=== PATIENT | female | born 1955 | race Caucasian/White ===

== ENCOUNTER 2023-09-30 10:53 | Outpatient (OUT) | payer MEDICARE, BC, SELFPAY ==
--- NOTE | 2023-09-30 | XR_ITS ---
The [address] [address] Patient Name: AMANDA SAMANIEGO MRN: [id number] date: 1955 Sex: F Assigned Patient Location: [facility] Current Patient Location: Accession/Order Number: [id number] Exam Date: 09/30/2023 11:10 Report Date: 10/01/2023 07:30 At the request of: BARTOLO TABOR Procedure: XR foot LT min 3V PROCEDURE: XR foot LT min 3V HISTORY: LEFT FOOT PAIN ; follow-up fourth and 5th metatarsal fractures COMPARISON: XR foot left 09/08/2023 FINDINGS: BONES:Minimally increased density of the fracture lines of the mildly displaced oblique fractures of the fourth and 5th metatarsals. SOFT TISSUES:No visible soft tissue swelling. EFFUSION:None visible. OTHER: Negative. XR/XR foot LT min 3V IMPRESSION: 1. Stable alignment and mild changes of early bone healing involving the fourth and 5th metatarsal fractures. Electronically authenticated by: DOMONIQUE HENDERSON Date: 10/01/2023 07:30
== END 2023-09-30 10:54 | disposition home or self-care (01) ==
LOC: RAD 10:53
PROVIDERS: Visit Provider Podiatrist Foot & Ankle Surgery
DX: S92.352D Displaced fracture of fifth metatarsal bone, left foot, subsequent encounter for fracture with routine healing (principal)
CPT/HCPCS: 73630

== ENCOUNTER 2023-11-04 10:37 | Outpatient (OUT) | payer MEDICARE, BC, SELFPAY ==
--- NOTE | 2023-11-04 | XR_ITS ---
The [address] [address] Patient Name: AMANDA SAMANIEGO MRN: [id number] date: 1955 Sex: F Assigned Patient Location: Current Patient Location: Accession/Order Number: [id number] Exam Date: 11/04/2023 10:45 Report Date: 11/04/2023 13:56 At the request of: BARTOLO TABOR Procedure: XR foot LT min 3V PROCEDURE: XR foot LT min 3V COMPARISON: 09/30/2023 HISTORY: LEFT FOOT PAIN FINDINGS: BONES:Again demonstrated are oblique displaced fractures involving the diaphysis of the fourth and fifth metatarsals. Slight increase in sclerosis with minimal bony bridging. No new fracture or dislocation. Enthesopathic spurring of the calcaneus SOFT TISSUES:Negative. No visible soft tissue swelling. EFFUSION:None visible. OTHER: Negative. XR/XR foot LT min 3V IMPRESSION: Stable diaphyseal, extra-articular fractures fourth and fifth metatarsals with minimal interval healing Electronically authenticated by: RENETTA BRAGA Date: 11/04/2023 13:56
== END 2023-11-04 10:38 | disposition home or self-care (01) ==
LOC: EC 10:37
PROVIDERS: Visit Provider Podiatrist Foot & Ankle Surgery
DX: S92.342D Displaced fracture of fourth metatarsal bone, left foot, subsequent encounter for fracture with routine healing (principal)
CPT/HCPCS: 73630

== ENCOUNTER 2023-12-08 10:49 | Outpatient (OUT) | payer MEDICARE, BC, SELFPAY ==
--- NOTE | 2023-12-08 | XR_ITS ---
[address] [address] Patient Name: AMANDA SAMANIEGO MRN: [id number] date: 1955 Sex: F Assigned Patient Location: Current Patient Location: Accession/Order Number: [id number] Exam Date: 12/08/2023 10:55 Report Date: 12/08/2023 15:33 At the request of: BARTOLO TABOR Procedure: XR foot LT min 3V PROCEDURE: XR foot LT min 3V COMPARISON: 11/04/2023 HISTORY: LEFT FOOT PAIN FINDINGS: BONES:Stable healing mildly displaced fractures diaphysis of the fourth and fifth metatarsals. Interval increase in bone healing with incomplete bony bridging. No new fracture or dislocation. Mild enthesopathic spurring of the calcaneus at the Achilles and plantar insertions SOFT TISSUES:Negative. No visible soft tissue swelling. EFFUSION:None visible. OTHER: Negative. XR/XR foot LT min 3V IMPRESSION: Stable healing fractures fourth and fifth metatarsals Electronically authenticated by: RENETTA BRAGA Date: 12/08/2023 15:33
== END 2023-12-08 10:50 | disposition home or self-care (01) ==
LOC: EC 10:50
PROVIDERS: Visit Provider Podiatrist Foot & Ankle Surgery
DX: S92.342D Displaced fracture of fourth metatarsal bone, left foot, subsequent encounter for fracture with routine healing (principal)
CPT/HCPCS: 73630

== ENCOUNTER 2024-01-19 10:46 | Outpatient (OUT) | payer MEDICARE, BC, SELFPAY ==
--- NOTE | 2024-01-19 | XR_ITS ---
The [address] [address] Patient Name: AMANDA SAMANIEGO MRN: [id number] date: 1955 Sex: F Assigned Patient Location: Current Patient Location: Accession/Order Number: [id number] Exam Date: 01/19/2024 10:52 Report Date: 01/20/2024 12:59 At the request of: BARTOLO TABOR Procedure: XR foot LT min 3V PROCEDURE: XR foot LT min 3V HISTORY: LEFT FOOT PAIN COMPARISON: XR foot left 12/08/2023 FINDINGS: BONES:Stable alignment and osseous bridging of prior fractures of the fourth and 5th metatarsals. No acute bone abnormality. SOFT TISSUES:No visible soft tissue swelling. EFFUSION:None visible. OTHER: Negative. XR/XR foot LT min 3V IMPRESSION: 1. Stable partial osseous healing of fourth and 5th metatarsal fractures. No significant change. Electronically authenticated by: DOMONIQUE HENDERSON Date: 01/20/2024 12:59
== END 2024-01-19 10:47 | disposition home or self-care (01) ==
LOC: EC 10:46
PROVIDERS: Visit Provider Podiatrist Foot & Ankle Surgery
DX: S92.342A Displaced fracture of fourth metatarsal bone, left foot, initial encounter for closed fracture (principal)
CPT/HCPCS: 73630